=== PATIENT | female | born 1980 | race Caucasian/White ===

== ENCOUNTER 2016-08-13 12:22 | Emergency (ER) | payer MEDICAID ==
[~2016-08-13] VITALS: Wt 59.0 kg
[~2016-08-13 12:22] MED LIST: DENIES
[2016-08-13 12:29] VITALS: Wt 59.0 kg
[2016-08-13] MEDS ORDERED: IBUPROFEN 600 MG TAB PO ONE (13:30)
--- NOTE | 2016-08-13 14:25 | ERD ---
ER Documentation Chief Complaint Date/Time DATE: 08/13/16 TIME: 14:23 Chief Complaint ortega and head numbness when falls asleep HPI 36-year-old female comes emergency department headache, head numbness, neck pain on and off for the past 2 weeks. Patient states that she usually has an achy pain at the top of her neck, worse when she lays down and she also reports right temporal scalp numbness with bilateral arm numbness. Pain slightly improved with Tylenol. She has not had any blurry vision, weakness. She denies that this is the worst headache of her life. There is no history of fever, neck stiffness or rashes. 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 ROS All systems reviewed and are negative except as per history of present illness. Medications Home Meds Active Scripts Cyclobenzaprine Hcl* (Cyclobenzaprine Hcl*) 5 Mg Tablet, 5 MG PO Q8H Y for PAIN , #15 TAB Prov:CAMERON LANDRY PA-C 08/13/16 Ibuprofen* (Motrin*) 600 Mg Tab, 600 MG PO Q6, #30 TAB Prov:CAMERON LANDRY PA-C 08/13/16 Reported Medications [Denies] No Conflict Check 12/18/09 Allergies Allergies: Coded Allergies: No Known Allergy (Verified Allergy, Mild, 12/18/09) PMhx/Soc History of Surgery: Yes Anesthesia Reaction: No Hx Neurological Disorder: No Hx Respiratory Disorders: No Hx Cardiac Disorders: No Hx Psychiatric Problems: No Hx Miscellaneous Medical Probl: No Hx Alcohol Use: No Hx Substance Use: No Hx Tobacco Use: No Physical Exam Vitals Vital Signs Date Time Temp Pulse Resp B/P Pulse Ox O2 Delivery O2 Flow Rate FiO2 08/13/16 15:03 64 18 112/72 100 Room Air 08/13/16 12:29 97.5 78 20 113/65 98 Physical Exam General: Well-developed, well-nourished. The patient appears in no acute distress. HEENT: Head is normocephalic, atraumatic. No scleral icterus. Eyes are Col[place], extraocular movements intact. Tender to the occipital scalp with palpation. Neck: Supple. Nontender. No meningismus, no crepitus. Lungs: Clear to auscultation. Normal air movement. Heart: Regular rate and rhythm. S1 and S2 are normal. No murmurs, gallops, or rubs. Abdomen: Soft, nontender, nondistended. Bowel sounds are normoactive. Extremities: No clubbing or cyanosis. Normal pulses. Moving extremities x 4. No weakness. Neuro: M/S: Alert and oriented Face: EOMI, CN II-XII grossly intact Motor: Normal strength throughout Sensation: Normal sensation throughout Speech: Normal Cerebel: Normal coordination Normal gait Normal finger to nose DTR: 2+ and symmetric upper/lower extremities Skin: Normal turgor. No rash or lesions. Results 24 hrs Current Medications Medications (Trade) Dose Ordered Sig/Evette Route PRN Reason Start Time Stop Time Status Last Admin Dose Admin Ibuprofen (Motrin) 600 mg ONCE ONCE PO 08/13/16 13:30 08/13/16 13:31 DC 08/13/16 13:27 PROCEDURE: CT Brain without IV contrast. CLINICAL INDICATION: Headache . Numbness. TECHNIQUE: A CT of the brain was performed on multislice CT scanner with axial sections from the skull base through the vertex without contrast. The scan was reviewed in soft tissue brain and high frequency resolution bone algorithm windows. Images were reviewed on a high-resolution PACS workstation. DLP: 720.2 mGy-cm. CTDIvol: 44.9 mGy. One or more of the following dose reduction techniques were used: Automated exposure control. Adjustment of the mA and/or kV according to patient size. Use of iterative reconstruction technique. COMPARISON: None available FINDINGS: The ventricles and sulci are symmetric and normal in size and morphology. There is no evidence of intracranial hemorrhage, mass effect, edema or midline shift. No abnormal intra-axial or extra-axial fluid collections are seen. Brainstem and posterior fossa structures are unremarkable. Visualized paranasal sinuses are unremarkable. The scalp and bony calvarium are intact. IMPRESSION: 1. No acute intracranial pathology. RPTAT: QQ .Steven Haji MD, Date Time Electronically viewed and signed by .Steven Haji MD, on 08/13/2016 14:26 PROCEDURE: CT cervical spine without contrast CLINICAL INDICATION: Neck pain. Numbness. TECHNIQUE: CT scan of the cervical spine was performed on the [employer] high-speed multi-slice scanner . No IV contrast was administered. Coronal and sagittal reformatted images were obtained from the axial source images. Total DLP = 507.5 mGy-cm.CTDI Vol = 22.3 mGy. COMPARISON: None available FINDINGS: There is straightening of the cervical spine with loss of the normal cervical lordosis. Alignment remains intact. No acute fracture or dislocation is seen. The vertebral body heights and intervertebral disk heights are all well preserved. Posterior elements structures are equally unremarkable. There is no evidence for perched facet nor unilateral locked facet. The airway is clear. The paraspinous soft tissues are unremarkable. No mass, hematoma, or other soft tissue abnormality is seen. IMPRESSION: 1. Unremarkable C-spine CT scan. 2. No acute fracture or dislocation is identified. RPTAT: QQ .Steven Haji MD, MD Date Time Electronically viewed and signed by .Steven Haji MD, on 08/13/2016 14:51 Procedures/MDM ED course: Patient was given ibuprofen for pain. MDM: 36-year-old female comes in with an occipital headache x 2 weeks. She reports numbness associated, likely due to occipital neuralgia. Patient is neurologically intact, does not have any signs of meningitis, encephalitis, transverse myelitis. Patient is also well appearing, has not had any fever, has normal strength, does not show any concerning signs or symptoms for any neurologic emergency. CT of the head and CT cervical spine are all unremarkable. She was given ibuprofen and reports he feeling much better at this time. She will be sent with ibuprofen and a short course of Flexeril. Departure Diagnosis: Primary Impression: Headache Condition: CAMERON Wheatley PA-C Aug 13, 2016 14:25
--- NOTE | 2016-08-13 14:26 | RADRPT ---
PROCEDURE: CT Brain without IV contrast. CLINICAL INDICATION: Headache . Numbness. TECHNIQUE: A CT of the brain was performed on multislice CT scanner with axial sections from the s kull base through the vertex without contrast. The scan was reviewed in soft tissue brain and high frequency resolution bone algorithm windows. Images were reviewed on a high-resolution PACS worksta tion. DLP: 720.2 mGy-cm. CTDIvol: 44.9 mGy. One or more of the following dose reduction techniques were used: Automated exposure control. Adjustment of the mA and/or kV according to patient size. Use of iterative reconstruction technique. COMPARISON: None available FINDINGS: The ventricles and sulci are symmetric and normal in size and morphology. There is no evidence of in tracranial hemorrhage, mass effect, edema or midline shift. No abnormal intra-axial or extra-axial f luid collections are seen. Brainstem and posterior fossa structures are unremarkable. Visualized par anasal sinuses are unremarkable. The scalp and bony calvarium are intact. IMPRESSION: 1. No acute intracranial pathology. RPTAT: QQ .Steven Haji MD, MD Date Time Electronically viewed and signed by .Steven Haji MD, on 08/13/2016 14:26 .L/
--- NOTE | 2016-08-13 14:52 | RADRPT ---
PROCEDURE: CT cervical spine without contrast CLINICAL INDICATION: Neck pain. Numbness. TECHNIQUE: CT scan of the cervical spine was performed on the [employer] high-speed multi-slice scanner . No IV contrast was administered. Coronal and sagittal reformatted images were obtained from the ax ial source images. Total DLP = 507.5 mGy-cm.CTDI Vol = 22.3 mGy. COMPARISON: None available FINDINGS: There is straightening of the cervical spine with loss of the normal cervical lordosis. Alignment r emains intact. No acute fracture or dislocation is seen. The vertebral body heights and interverte bral disk heights are all well preserved. Posterior elements structures are equally unremarkable. There is no evidence for perched facet nor unilateral locked facet. The airway is clear. The alison pinous soft tissues are unremarkable. No mass, hematoma, or other soft tissue abnormality is seen. IMPRESSION: 1. Unremarkable C-spine CT scan. 2. No acute fracture or dislocation is identified. RPTAT: QQ .Steven Haji MD, Date Time Electronically viewed and signed by .Steven Haji MD, MD on 08/13/2016 14:51 .L/
[2016-08-13] MEDS ORDERED: IBUP-1542 PO (14:56)
[2016-08-13] MEDS ORDERED: CYCL5TAB PO (14:56)
[2016-08-13 15:03] VITALS: BP 112/72; PULSE 64; RESP 18
== END 2016-08-13 15:04 | disposition home or self-care (01) ==
LOC: FTE 12:22
DX: R51 Headache (principal)
CPT/HCPCS: 70450; 72125; Z7502; Z7610